=== PATIENT | female | born 1990 | race Caucasian/White ===

== ENCOUNTER 2022-03-08 23:40 | Emergency (ER) | payer OTHER ==
[2022-03-08 23:59] VITALS: BP 1193/59; PULSE 98; RESP 20; TEMP 98.6; BMI 32.1
[2022-03-09] MEDS ORDERED: AMOX TR/POT CLAV 875MG/125MG TABLETS (FP) PO ONE (01:27)
[2022-03-09] MEDS ORDERED: DEXAMETHASONE 4 MG TABLET (FP) PO ONE (01:30)
[2022-03-09] MEDS ORDERED: DEXAMETHASONE SOD PHOSPHATE 10 MG/1 ML VIAL ONE (01:47)
[2022-03-09] MEDS ORDERED: AMOX TR/POT CLAV 875MG/125MG TABLETS (FP) ONE (01:47)
== END 2022-03-09 02:14 | disposition home or self-care (01) ==
LOC: JER 23:40 → MERGE 23:40 → JER 03-09 02:14
DX: J02.9 Acute pharyngitis, unspecified (principal)
CPT/HCPCS: 99283-25